=== PATIENT | male | born 1960 | race Caucasian/White ===

== ENCOUNTER 2016-10-03 14:13 | Inpatient (IN) ==
[2016-10-03] MEDS ORDERED: Ondansetron 4 MG/2 ML VIAL IVP PRN (20:14)
[2016-10-03] MEDS ORDERED: Acetaminophen 325 MG TABLET PO PRN (20:14)
[2016-10-03] MEDS ORDERED: *HR* Morphine 2 MG/ML SYRINGE IVP PRN (20:14)
[2016-10-03] MEDS ORDERED: *HR* HYDROcodone/Acet 5/325 mg TABLET PO PRN (20:14)
[2016-10-03] MEDS ORDERED: Naloxone 0.4 MG/ML INJ IVP PRN (20:14)
[2016-10-03] MEDS ORDERED: Ipratropium/Albuterol Neb 3 ML IH PRN (20:20)
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
[2016-10-03 20:47] LABS: Bilirubin,Urine Negative (Negative); Blood,Urine Negative (Negative); Clarity,Urine Cloudy (Clear); Color,Urine Yellow (Yellow); Glucose,Urine (UA) Normal (Normal); Ketones,Urine Negative (Negative); Leukocyte Esterase,Urine Negative (Negative); Nitrite,Urine Negative (Negative); Protein,Urine Negative (Neg-Trace); Specific Gravity,Urine 1.018 (1.010-1.025); Urobilinogen,Urine Normal (Normal)
[2016-10-03 20:50] LABS: Bacteria,Urine None Seen per hpf (None-Few); Hyaline Casts,Urine None Seen per lpf (None-Few); RBC,Urine 0-3 per hpf (0-3); Squamous Epithelial Cell,Urine Few per lpf (None-Few); WBC,Urine 0-3 per hpf (0-3)
[2016-10-03] MEDS: Topiramate 100 MG TABLET PO SCH (21:30)
[2016-10-03] MEDS: diazePAM 5 MG TABLET PO SCH (21:31)
[2016-10-03] MEDS: Gabapentin 300 MG CAPSULE PO SCH (21:31)
[2016-10-03] MEDS: *HR* Heparin 5,000 UNIT/ML VIAL SQ SCH (21:36)
[2016-10-03] MEDS: Pantoprazole 40 MG VIAL IVP SCH (21:36)
[2016-10-04 04:58] LABS: Basophils # 0.1 K/mcL (0.0-0.2); Basophils % 0.8 %; Eosinophils # 0.2 K/mcL (0.0-0.6); Eosinophils % 2.3 %; Hematocrit 43.4 % (37.5-50.1); Hemoglobin 14.8 g/dL (12.9-16.9); Immature Granulocytes % 0.3 % (0-4); Lymphocytes # 2.7 K/mcL (0.6-4.6); Lymphocytes % 33.6 %; Mean Corpuscular HGB Conc 34.1 g/dL (31.6-35.5); Mean Corpuscular Hemoglobin 31.5 pg (28.0-33.3); Mean Corpuscular Volume 92.3 fL (83.0-100.0); Mean Platelet Volume 10.1 fL (9.4-12.4); Monocytes # 0.7 K/mcL (0.0-1.3); Monocytes % 9.4 %; Neutrophils # 4.2 K/mcL (1.6-8.9); Platelet Count 239 K/mcL (140-400); Red Cell Distribution Width 13.2 % (11.5-14.5); Segmented Neutrophils % 53.6 %
[2016-10-04 05:02] LABS: INR 1.1; Prothrombin Time 11.9 Seconds (9.4-12.1)
[2016-10-04 05:04] LABS: Activated Partial Thrombo Time 30.1 Seconds (26.0-36.0)
[2016-10-04 05:12] LABS: BUN/Creatinine Ratio 15 (6-26); Blood Urea Nitrogen 13 mg/dL (8-26); Calcium 8.8 mg/dL (8.6-10.8); Carbon Dioxide 21 mEq/L (19-29); Chloride 116 mEq/L (98-109); Glucose 104 mg/dL (70-99); Osmolality,Calculated 296 (280-300); Potassium 3.6 mEq/L (3.5-4.5); Sodium 143 mEq/L (136-145); eGFR For African Americans > 60 (> 60); eGFR For Non-African Americans > 60 (> 60)
[2016-10-04 05:16] LABS: Chol/HDL Ratio 6.4 (0-4.9); Magnesium 2.1 mg/dL (1.6-2.6)
[2016-10-04] MEDS: *HR* Heparin 5,000 UNIT/ML VIAL SQ SCH ×3 (05:51→20:28)
[2016-10-04] MEDS: Pantoprazole 40 MG VIAL IVP SCH ×2 (09:05→20:29)
[2016-10-04] MEDS: Aspirin Enteric Coated 81 MG Tablet PO SCH (09:05)
[2016-10-04] MEDS: Topiramate 100 MG TABLET PO SCH ×2 (09:05→20:29)
[2016-10-04] MEDS: Gabapentin 300 MG CAPSULE PO SCH ×3 (09:05→20:29)
[2016-10-04] MEDS: diazePAM 5 MG TABLET PO SCH ×2 (09:05→20:29)
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
[2016-10-05] MEDS: *HR* Heparin 5,000 UNIT/ML VIAL SQ SCH ×2 (05:47→15:50)
[2016-10-05] MEDS: Gabapentin 300 MG CAPSULE PO SCH ×2 (09:42→15:50)
[2016-10-05] MEDS: Topiramate 100 MG TABLET PO SCH (09:42)
[2016-10-05] MEDS: Aspirin Enteric Coated 81 MG Tablet PO SCH (09:43)
[2016-10-05] MEDS: diazePAM 5 MG TABLET PO SCH (09:43)
[2016-10-05] MEDS: Pantoprazole 40 MG VIAL IVP SCH ×2 (09:43→14:29)
--- NOTE | 2016-10-05 15:10 | Discharge Summary ---
Date of Encounter: 10/05/16 Time of Encounter: 15:05 - Discharge Diagnosis (1) TIA (transient ischemic attack) Priority: Primary Status: Acute Qualifiers: Transient cerebral ischemia type: unspecified Qualified Code(s): G45.9 - Transient cerebral ischemic attack, unspecified (2) Dysphagia Priority: Secondary Status: Acute Qualifiers: Qualified Code(s): R13.10 - Dysphagia, unspecified (3) COPD (chronic obstructive pulmonary disease) Priority: Secondary Status: Chronic Qualifiers: COPD type: unspecified COPD Qualified Code(s): J44.9 - Chronic obstructive pulmonary disease, unspecified (4) HTN (hypertension) Priority: Secondary Status: Chronic Qualifiers: Hypertension type: essential hypertension Qualified Code(s): I10 - Essential (primary) hypertension (5) GERD (gastroesophageal reflux disease) Priority: Secondary Status: Chronic Qualifiers: Esophagitis presence: esophagitis presence not specified Qualified Code(s) : K21.9 - Gastro-esophageal reflux disease without esophagitis (6) DVT prophylaxis Priority: Secondary Status: Acute - Discharge Medications Prescriptions: Atorvastatin [Lipitor] 20 mg PO HS #30 tab Clopidogrel [Plavix] 75 mg PO DAILY #30 tab Omeprazole [PriLOSEC] 20 mg PO BIDAC #60 Home Medications: Fluticasone/Salmeterol [Advair 250-50 Diskus] 1 each IH BID 02/26/15 [History] Losartan [Cozaar] 25 mg PO DAILY 02/26/15 [History] Aspirin [Lo-Dose Aspirin EC] 81 mg PO DAILY 10/03/16 [History] Gabapentin [Neurontin] 300 mg PO DAILY 10/03/16 [History] Ranolazine [Ranexa] 250 mg PO DAILY 10/03/16 [History] Topiramate [Topamax] 100 mg PO BID 10/03/16 [History] diazePAM [Valium] 5 mg PO DAILY 10/03/16 [History] Albuterol Sulfate [Albuterol Inhaler] 2 puff IH Q4HR PRN 10/05/16 [History] Atorvastatin [Lipitor] 20 mg PO HS #30 tab 10/05/16 [Rx] Clopidogrel [Plavix] 75 mg PO DAILY #30 tab 10/05/16 [Rx] Omeprazole [PriLOSEC] 20 mg PO BIDAC #60 10/05/16 [Rx] Allergies/Adverse Reactions: 3 Allergy/AdvReac Type Severity Reaction Status Date / Time lisinopril Allergy Cough Verified 10/05/16 12:02 Procedures/tests Complete & Pending: Procedures Performed prior 72 hours Category Date Time Status CT angio head wo/w con [CT] Routine Cat Scan 10/04/16 14:[address] angio neck [CT] Routine Cat Scan 10/04/16 14:00 Completed EKG [ECG 12 lead ECG] [ECG] Routine Y 10/03/16 21:14 Ordered EV echocardiogram Routine Y 10/04/16 19:34 Completed Date of admission: 10/04/16 15:45 Primary care physician: Xavier Stevenson DO Consults: 10/03/16 19:39 Consult to Occupational Therapy [CONS] Routine Comment: Evaluate, develop and implement POC Reason for Consult: Patient has hx of TIAs and injuries related to the , especially loss of use of his left leg. Patient has mild left-sided weakness today from suspected TIA. Will need assessed for strength and rehabilitation as well as home needs. Consult to Physical Therapy [CONS] Routine Comment: Evaluate, develop and implement POC Reason for Consult: Patient has hx of TIAs and injuries related to the , especially loss of use of his left leg. Patient has mild left-sided weakness today from suspected TIA. Will need assessed for strength and rehabilitation as well as home needs. Consult to Medical Charge Entry Specialist [CONS] Routine Reason for SW Consult: Patient has hx of TIAs and injuries related to the , especially loss of use of his left leg. Patient has mild left-sided weakness today from suspected TIA. Will need assessed for home needs as well as possible rehabilitation options based on his insurance. 10/03/16 20:08 Consult to Neurology [CONS] Routine Consulting Provider: Neurology [facility] Reason for Consult: Patient has hx of TIAs and reports TIA today with pain in top of head which resulted in left-sided weakness and left facial droop. Left leg is completely unusable due to injury from a accident. Has uncontrolled tremors in left leg. Call Completed: Yes Discharging clinician: Barbi Calles Anticipated date of discharge: 10/05/16 - Patient Status Disposition: Home, Self-Care Condition: Good Overall status at discharge: patient is progressing back to baseline - Discharge Instructions Instructions: Hyperlipidemia (DC) Follow Up With: Xavier Stevenson DO [Primary Care Provider] - - Diet and Activity Activity: resume usual activities as tolerated Diet: advance to your usual diet Hospital course: Mr. Howard is a 56 year old male who has developed acute onset of strictly left sided paresthesia and weakness in a midline fashion, without significant speech difficulty, or mental status changes, likely representing small lacunar infarct , likely in the thalamus, which causes strictly midline fashion paresthesia. However, confirmation of such small infarct will be difficult without MRI of brain scanning. Therefore CTA of head and neck and echocardiogram ordered. CTA of brain and neck is quite unremarkable for any aneurysm or stenosis or any abnormal finding of a stroke. Echocardiogram showed normal cardiac ejection fraction about 65% with normal cardiac LV systolic function and no evidence of valvular abnormality or PFO. Patient is also complaining of dysphagia and we ordered a modified esophagogram. Patient was restarted on Prilosec and patient reported this morning that his symptoms have resolved with the help of Prilosec and he is not interested in doing esophagogram. He is set if symptoms recur or he changes his mind he can let his family doctor know and it can be done as outpatient. - Time Spent with Patient Total time spent providing and/or coordinating discharge services: Greater than 30 minutes - Constitutional Vitals: Temp Pulse Resp BP Pulse Ox 97.9 F 68 17 125/82 98 10/05/16 12:23 10/05/16 12:23 10/05/16 12:23 10/05/16 12:23 10/05/16 12:23 General appearance: Present: A&O X 3, no acute distress - Head Head exam: Present: atraumatic, normocephalic - Eye Eye exam: Present: PERRL, conjuntiva pink, sclera anicteric Pupils: Present: PERRL - Neck Neck exam general surgery: Present: supple, trachea midline. Absent: lymphadenopathy - Respiratory Respiratory exam: Present: CTAB. Absent: accessory muscle use, rales, rhonchi, wheezes - Cardiovascular Cardiovascular exam: Present: RRR, +S1, +S2. Absent: diastolic murmur, gallop, rubs, systolic murmur - GI/Abdominal GI/Abdominal exam: Present: normal bowel sounds, soft, no peritoneal signs. Absent: distended, tenderness - Extremities Exam Extremities exam: Present: warm, radial pulses palpable and symmetrical. Absent : calf tenderness, cyanotic, pedal edema - Neurological Exam Neurological exam: Present: CN II-XII intact, oriented X3, no focal deficits. Absent: pronater drift, facial droop, speech deficit - Skin Skin exam: Present: dry, intact
[2016-10-05 15:34] VITALS: BP 118/74
== END 2016-10-05 17:30 | disposition home or self-care (01) | DRG 69 ==
LOC: 3BNU
PROVIDERS: ADMIT Internal Medicine; ATTEND Registered Nurse

== ENCOUNTER 2019-02-04 14:57 | Inpatient (IN) ==
[2019-02-04] MEDS ORDERED: *HR* FentaNYL (PF) 100 MCG/2 ML VIAL ONE (16:21)
[2019-02-04] MEDS: *HR* Midazolam HCl 5 MG/5 ML VIAL IVP ONE ×2 (17:13→17:20)
[2019-02-04] MEDS ORDERED: Naloxone 0.4 MG/ML INJ IVP PRN (17:47)
[2019-02-04] MEDS ORDERED: Ondansetron ODT 4 MG TAB.RAPDIS SL PRN (17:47)
[2019-02-04] MEDS: Budesonide/Formoterol 160/4.5 1 PUFF INH IH SCH (20:24)
[2019-02-04] MEDS: 0.9 % Sodium Chloride w KCl 20 MEQ/1,000 ML MLS IVC SCH (23:51)
[2019-02-05 06:46] LABS: Basophils % 0.3 %; Eosinophils # 0.4 K/mcL (0.0-0.6); Eosinophils % 4.4 %; Hematocrit 43.5 % (37.5-50.1); Hemoglobin 14.7 g/dL (12.9-16.9); Immature Granulocytes % 0.4 % (0-4); Lymphocytes # 2.5 K/mcL (0.6-4.6); Lymphocytes % 27.5 %; Mean Corpuscular HGB Conc 33.8 g/dL (31.6-35.5); Mean Corpuscular Hemoglobin 32.2 pg (28.0-33.3); Mean Corpuscular Volume 95.2 fL (83.0-100.0); Mean Platelet Volume 10.2 fL (9.4-12.4); Monocytes # 0.9 K/mcL (0.0-1.3); Monocytes % 9.8 %; Neutrophils # 5.2 K/mcL (1.6-8.9); Platelet Count 227 K/mcL (140-400); Red Blood Count 4.57 M/mcL (4.19-5.50); Red Cell Distribution Width 12.8 % (11.5-14.5); Segmented Neutrophils % 57.6 %; White Blood Count 9.1 K/mcL (4.3-11.1)
[2019-02-05] MEDS: *HR* Enoxaparin 40 MG/0.4 ML SYRINGE SQ SCH (06:47)
[2019-02-05 06:51] LABS: INR 1.1; Prothrombin Time 12.8 Seconds (9.4-12.1)
[2019-02-05 07:00] LABS: BUN/Creatinine Ratio 13 (6-26); Blood Urea Nitrogen 12 mg/dL (6-20); Calcium 8.5 mg/dL (8.6-10.3); Carbon Dioxide 26 mEq/L (23-29); Chloride 109 mEq/L (98-107); Glucose 83 mg/dL (70-105); Magnesium 1.8 mg/dL (1.6-2.6); Osmolality,Calculated 291 (280-300); Phosphorous 2.8 mg/dL (2.7-4.5); Potassium 4.2 mEq/L (3.5-5.1); Sodium 141 mEq/L (136-145); eGFR For African Americans > 60 (> 60); eGFR For Non-African Americans > 60 (> 60)
[2019-02-05] MEDS: Regadenoson 0.4 MG/5 ML SYRINGE IVP ONE ×2 (07:50→09:49)
[2019-02-05] MEDS: Budesonide/Formoterol 160/4.5 1 PUFF INH IH SCH ×2 (10:41→20:31)
[2019-02-05] MEDS: Aspirin Enteric Coated 81 MG Tablet PO SCH (11:25)
[2019-02-06] MEDS: *HR* Enoxaparin 40 MG/0.4 ML SYRINGE SQ SCH (05:07)
[2019-02-06] MEDS: 0.9 % Sodium Chloride w KCl 20 MEQ/1,000 ML MLS IVC SCH (07:33)
[2019-02-06] MEDS: Budesonide/Formoterol 160/4.5 1 PUFF INH IH SCH ×2 (07:56→22:01)
[2019-02-06] MEDS: Aspirin Enteric Coated 81 MG Tablet PO SCH (08:06)
[2019-02-06] MEDS ORDERED: *HR* OxyCODONE Immed Rel 5 MG TABLET PO PRN (11:30)
[2019-02-06] MEDS ORDERED: *HR* Meperidine 25 MG/ML SYRINGE IVP PRN (11:30)
[2019-02-06] MEDS ORDERED: *HR* Promethazine 25 MG/ML VIAL IVP PRN (11:30)
[2019-02-06] MEDS ORDERED: Acetaminophen IV 1,000 MG/100 ML INFUS..BTL IVPB ONE (11:30)
[2019-02-06] MEDS ORDERED: *HR* FentaNYL (PF) 100 MCG/2 ML VIAL IVP PRN (11:30)
[2019-02-06] MEDS ORDERED: *HR* Propofol 200 MG/20 ML VIAL IVP ONE (12:38)
[2019-02-06] MEDS ORDERED: Neostigmine Methylsulfate 3 MG/3 ML SYRINGE ONE (12:38)
[2019-02-06] MEDS ORDERED: Dexamethasone 4 MG/ML VIAL ONE (12:38)
[2019-02-06] MEDS ORDERED: Lidocaine -MPF 2% 2 ML VIAL ONE (12:38)
[2019-02-06] MEDS ORDERED: Ketorolac 30 MG/ML VIAL ONE (12:38)
[2019-02-06] MEDS ORDERED: Ondansetron 4 MG/2 ML VIAL ONE (12:38)
[2019-02-06] MEDS ORDERED: *HR* Rocuronium Bromide 50 MG/5 ML VIAL ONE (12:38)
[2019-02-06] MEDS ORDERED: *HR* FentaNYL (PF) 100 MCG/2 ML VIAL ONE (12:38)
[2019-02-06] MEDS ORDERED: *HR* Midazolam HCl 2 MG/2 ML VIAL ONE (12:39)
[2019-02-06] MEDS ORDERED: Lidocaine -MPF 4% 5 ML AMPUL ONE (13:57)
[2019-02-06] MEDS ORDERED: *HR* Succinylcholine 200 MG/10 ML VIAL IVP ONE (13:59)
[2019-02-06] MEDS ORDERED: cefOXitin 2,000 MG in Water for inj. (sterile) 20 ML IVP ONE (14:13)
[2019-02-06] MEDS ORDERED: CefOXitin 2,000 MG VIAL ONE (14:14)
[2019-02-06] MEDS ORDERED: Acetaminophen IV 1,000 MG/100 ML INFUS..BTL ONE (15:09)
[2019-02-06] MEDS ORDERED: *HR* HYDROMORPHONE 2 MG/ML VIAL ONE (15:31)
[2019-02-06] MEDS: *HR* HYDROmorphone (PF) 1 MG/ML SYRINGE IVP PRN ×4 (17:35→17:53)
[2019-02-06] MEDS ORDERED: Naloxone 0.4 MG/ML INJ IVP PRN ×2 (18:54)
[2019-02-06] MEDS ORDERED: Ondansetron ODT 4 MG TAB.RAPDIS SL PRN (18:54)
[2019-02-06] MEDS ORDERED: *HR* HYDROmorphone 20 MG/20 ML PCA IVC PRN (18:54)
[2019-02-06] MEDS ORDERED: NON-FORMULARY MEDICATION 1 EACH EACH (Fluticasone/Salmeterol [Advair 250-50 Diskus] 1 PUFF IH SCH (18:54)
[2019-02-06] MEDS ORDERED: 0.9 % Sodium Chloride 500 ML ONE (20:23)
[2019-02-06] MEDS: D5% in 0.45% NACL w KCl 20 MEQ/1,000 ML MLS IVC SCH (20:50)
[2019-02-06] MEDS: Gabapentin 300 MG CAPSULE PO SCH (21:54)
[2019-02-07 05:07] LABS: Hematocrit 42.8 % (37.5-50.1); Hemoglobin 14.6 g/dL (12.9-16.9); Mean Corpuscular HGB Conc 34.1 g/dL (31.6-35.5); Mean Corpuscular Hemoglobin 32.1 pg (28.0-33.3); Mean Corpuscular Volume 94.1 fL (83.0-100.0); Mean Platelet Volume 10.5 fL (9.4-12.4); Platelet Count 235 K/mcL (140-400); Red Blood Count 4.55 M/mcL (4.19-5.50); Red Cell Distribution Width 12.4 % (11.5-14.5); White Blood Count 12.8 K/mcL (4.3-11.1)
[2019-02-07 05:22] LABS: BUN/Creatinine Ratio 13 (6-26); Blood Urea Nitrogen 11 mg/dL (6-20); Calcium 8.5 mg/dL (8.6-10.3); Carbon Dioxide 23 mEq/L (23-29); Chloride 104 mEq/L (98-107); Glucose 151 mg/dL (70-105); Osmolality,Calculated 286 (280-300); Potassium 4.3 mEq/L (3.5-5.1); Sodium 137 mEq/L (136-145); eGFR For African Americans > 60 (> 60); eGFR For Non-African Americans > 60 (> 60)
[2019-02-07] MEDS: D5% in 0.45% NACL w KCl 20 MEQ/1,000 ML MLS IVC SCH ×2 (08:03→18:00)
[2019-02-07] MEDS: Gabapentin 300 MG CAPSULE PO SCH (08:06)
[2019-02-07] MEDS ORDERED: Aspirin Enteric Coated 81 MG Tablet PO SCH (09:00)
[2019-02-07] MEDS: Budesonide/Formoterol 160/4.5 1 PUFF INH IH SCH ×2 (10:53→20:07)
[2019-02-07] MEDS: Aspirin 81 MG TAB.CHEW PO SCH (11:33)
[2019-02-07] MEDS: Pantoprazole 40 MG VIAL IVP SCH (11:34)
[2019-02-07] MEDS: Ketorolac 15 MG/ML VIAL IVP SCH ×3 (12:16→23:36)
[2019-02-07] MEDS: *HR* Heparin 5,000 UNIT/ML VIAL SQ SCH (18:00)
[2019-02-08] MEDS: D5% in 0.45% NACL w KCl 20 MEQ/1,000 ML MLS IVC SCH ×2 (04:08→07:52)
[2019-02-08 05:57] LABS: Hematocrit 40.1 % (37.5-50.1); Hemoglobin 13.6 g/dL (12.9-16.9); Mean Corpuscular HGB Conc 33.9 g/dL (31.6-35.5); Mean Corpuscular Hemoglobin 31.9 pg (28.0-33.3); Mean Corpuscular Volume 94.1 fL (83.0-100.0); Mean Platelet Volume 10.4 fL (9.4-12.4); Platelet Count 222 K/mcL (140-400); Red Blood Count 4.26 M/mcL (4.19-5.50); Red Cell Distribution Width 12.5 % (11.5-14.5); White Blood Count 9.8 K/mcL (4.3-11.1)
[2019-02-08 06:14] LABS: BUN/Creatinine Ratio 10 (6-26); Blood Urea Nitrogen 10 mg/dL (6-20); Calcium 8.3 mg/dL (8.6-10.3); Carbon Dioxide 26 mEq/L (23-29); Chloride 105 mEq/L (98-107); Glucose 102 mg/dL (70-105); Osmolality,Calculated 289 (280-300); Potassium 4.1 mEq/L (3.5-5.1); Sodium 140 mEq/L (136-145); eGFR For African Americans > 60 (> 60); eGFR For Non-African Americans > 60 (> 60)
[2019-02-08] MEDS: *HR* Heparin 5,000 UNIT/ML VIAL SQ SCH ×2 (06:25→17:45)
[2019-02-08] MEDS: Ketorolac 15 MG/ML VIAL IVP SCH ×4 (06:25→23:00)
[2019-02-08] MEDS: Budesonide/Formoterol 160/4.5 1 PUFF INH IH SCH ×2 (07:33→22:19)
[2019-02-08] MEDS: Pantoprazole 40 MG VIAL IVP SCH (07:34)
[2019-02-08] MEDS: Aspirin 81 MG TAB.CHEW PO SCH (07:34)
[2019-02-09] MEDS: *HR* Heparin 5,000 UNIT/ML VIAL SQ SCH ×2 (06:59→18:09)
[2019-02-09] MEDS: Ketorolac 15 MG/ML VIAL IVP SCH (06:59)
[2019-02-09] MEDS: Budesonide/Formoterol 160/4.5 1 PUFF INH IH SCH ×2 (07:12→19:56)
[2019-02-09] MEDS: Aspirin 81 MG TAB.CHEW PO SCH (10:14)
[2019-02-09] MEDS: Pantoprazole 40 MG VIAL IVP SCH (10:15)
[2019-02-09] MEDS: Docusate Oral Soln 100 MG/10 ML UDC PO SCH ×2 (11:39→20:39)
[2019-02-10] MEDS: *HR* Heparin 5,000 UNIT/ML VIAL SQ SCH (06:17)
[2019-02-10] MEDS: Budesonide/Formoterol 160/4.5 1 PUFF INH IH SCH (07:36)
[2019-02-10] MEDS: Docusate Oral Soln 100 MG/10 ML UDC PO SCH (08:32)
[2019-02-10] MEDS: Aspirin 81 MG TAB.CHEW PO SCH (08:32)
[2019-02-10 11:06] VITALS: BP 151/98
== END 2019-02-10 12:20 | disposition home or self-care (01) | DRG 330 ==
LOC: 3ANU 14:57 → EMEROOARM 14:57 → 3ANU 16:50
PROVIDERS: ADMIT Surgery; ATTEND Surgery